=== PATIENT | female | born 1975 | race African-American/Black ===

== ENCOUNTER 2025-04-13 13:17 | Emergency (ER) | payer MEDICARE, MEDICAID ==
[~2025-04-13] VITALS: Ht 167.6 cm; Wt 90.0 kg
[2025-04-13 13:46] VITALS: O2SAT 100
[2025-04-13 14:21] LABS: CHLORIDE 103 mEq/L (98-107); POTASSIUM 3.7 mEq/L (3.5-5.1); SODIUM 137 mEq/L (136-145)
[2025-04-13 14:22] LABS: CARBON DIOXIDE 28 mEq/L (21-32)
[2025-04-13 14:27] LABS: CREATININE 1.1 mg/dL (0.6-1.0); GLUCOSE 116 mg/dL (70-105); UREA NITROGEN BLOOD 10 mg/dL (9-23)
[2025-04-13 14:28] LABS: BASOPHILS % 1.5 % (0.0-2.0); EOSINOPHILS % 3.3 % (0.0-5.0); HEMATOCRIT. 39.1 % (36.0-48.0); HEMOGLOBIN. 13.5 g/dL (12.0-16.0); LYMPHOCYTES % 19.7 % (20.0-50.0); MEAN CORPUSCULAR HEMOGLOBIN 29.9 pg (28.0-32.0); MEAN CORPUSCULAR HGB CONC 34.4 g/dL (31.0-37.0); MEAN CORPUSCULAR VOLUME 86.9 fL (81.0-99.0); MEAN PLATELET VOLUME 8.9 fl (7.4-10.4); NEUTROPHILS % 67.5 % (40.0-76.0); PLATELET 285 x1000/uL (130-400); RED CELL DISTRIBUTION WIDTH 12.5 % (11.6-14.6); TROPONIN I HIGH SENSITIVITY 5 ng/L (3.0-34); WHITE BLOOD COUNT 6.3 x1000/uL (4.5-11.0)
[2025-04-13] MEDS ORDERED: MECL-299 MT (15:04)
[2025-04-13] MEDS ORDERED: FURO-152 MT (15:04)
[2025-04-13] MEDS ORDERED: LOSA100T33 MT (15:04)
[2025-04-13] MEDS ORDERED: ATEN50TA MT (15:04)
[2025-04-13] MEDS ORDERED: HYDROXYZINE 25MG TABLET PO ONE (15:15)
[2025-04-13 15:24] VITALS: BP 105/75; PULSE 76; RESP 16; TEMP 36.7; O2SAT 99
== END 2025-04-13 15:26 | disposition home or self-care (01) ==
LOC: ER 14:10
DX: I10 Essential (primary) hypertension (principal); R42 Dizziness and giddiness; Z76.0 Encounter for issue of repeat prescription; J45.909 Unspecified asthma, uncomplicated; R56.9 Unspecified convulsions; Z79.899 Other long term (current) drug therapy; Z91.148 Patient's other noncompliance with medication regimen for other reason
CPT/HCPCS: 36415; 80048; 84484; 85025; 93005; 99283; 99284